=== PATIENT | female | born 1965 | race Two or more races ===

== ENCOUNTER 2018-06-08 06:28 | Day surgery (SDC) | payer OTHER ==
[2018-06-08] MEDS: BUPIVACAINE 0.25% (MPF) 30 ML INJ INJ
[2018-06-08] MEDS ORDERED: CEFAZOLIN 2 GM/50 ML (PMX) 50 ML IVPB (07:00)
[2018-06-08] MEDS: SOD CHLORIDE 0.9% 1,000 ML IV (07:21)
[2018-06-08] MEDS ORDERED: BUPIVACAINE 0.25% (MPF) 30 ML INJ (08:24)
[2018-06-08] MEDS ORDERED: BUPIVACAINE 0.5% (SDV) 30 ML INJ (08:24)
[2018-06-08] MEDS ORDERED: LIDOCAINE 2% (MDV) 20 ML INJ (08:24)
[2018-06-08] MEDS ORDERED: ONDANSETRON 4 MG INJ IV (09:00)
[2018-06-08] MEDS ORDERED: HYDROmorphONE 1 MG/5 ML IV SYRINGE IV ×2 (09:00)
[2018-06-08] MEDS ORDERED: MEPERIDINE 25 MG INJ IV (09:00)
[2018-06-08] MEDS ORDERED: DIPHENHYDRAMINE 50 MG INJ IV (09:00)
[2018-06-08] MEDS ORDERED: FENTAnyl 50 MCG/ML VIAL IV (09:00)
[2018-06-08] MEDS ORDERED: FENTAnyl 50 MCG/ML VIAL (09:01)
[2018-06-08] MEDS ORDERED: NEOMYC/POLYMYX/BACIT 30 GM OINT (09:27)
[2018-06-08] MEDS ORDERED: LIDOCAINE 2% (SDV) 5 ML INJ (09:38)
[2018-06-08] MEDS ORDERED: PROPOFOL 20 ML (09:38)
[2018-06-08] MEDS ORDERED: CEFAZOLIN 1 GM INJ (09:42)
[2018-06-08] MEDS ORDERED: ONDANSETRON 4 MG INJ (09:43)
[2018-06-08] MEDS: HYDROCODONE/APAP (5/325) TAB PO (11:22)
== END 2018-06-08 11:35 | disposition home or self-care (01) ==
LOC: SDS 06:28
DX: D17.0 Benign lipomatous neoplasm of skin and subcutaneous tissue of head, face and neck (principal)
CPT/HCPCS: 14020; 88307